=== PATIENT | male | born 1945 | race African-American/Black ===

== ENCOUNTER 2020-08-21 14:57 | Emergency (ER) | payer OTHER ==
[~2020-08-21] VITALS: Ht 167.6 cm; Wt 70.3 kg
[~2020-08-21 14:57] MED LIST: INVANZ1 GM IV
[2020-08-21 17:45] LABS: ABSOLUTE NEUTROPHILS 3.2 thou/uL (1.4-8.2); BASOPHILS 2.3 % (0.0-2.0); EOSINOPHILS 2.1 % (0.0-3.0); HEMATOCRIT 25.7 % (42.0-52.0); HEMOGLOBIN 8.6 gm/dL (14.0-18.0); LYMPHOCYTES 19.3 % (24.0-44.0); MCH 34.1 pg (26.0-34.0); MCHC 33.6 g/dL (28.0-37.0); MCV 101.6 fL (80.0-100.0); MONOCYTES 17.7 % (1.0-8.0); PLATELET COUNT 200 thou/uL (150-400); POLYS 58.6 % (36.0-66.0); RBC 2.53 mil/uL (4.50-6.00); RDW 20.4 % (10.5-14.5); WBC 5.5 thou/uL (4.0-11.0)
[2020-08-21 17:46] LABS: CALCIUM 7.7 mg/dL (8.5-10.1); POTASSIUM 3.5 mmol/L (3.5-5.1)
[2020-08-21 17:52] LABS: ALBUMIN 1.9 g/dL (3.4-5.0); TOTAL BILIRUBIN 0.5 mg/dL (0.2-1.0); TOTAL PROTEIN 5.9 g/dL (6.4-8.2)
[2020-08-21 17:54] LABS: INR 1.04; PROTIME 11.3 Seconds (10.5-12.1)
[2020-08-21] MEDS ORDERED: TYLENOL325 MG PO (18:08)
[2020-08-21] MEDS ORDERED: ADVAIR 100-501 EACH INH (18:09)
[2020-08-21] MEDS ORDERED: ASPIRIN EC81 M1 PO (18:10)
[2020-08-21] MEDS ORDERED: FOLIC ACID1 MG PO (18:12)
[2020-08-21] MEDS ORDERED: FUROSEMIDE 40 M40 MG PO (18:12)
[2020-08-21] MEDS ORDERED: NICOTINE PATCH1 EAC2 TRANSDERM (18:16)
[2020-08-21] MEDS ORDERED: PROTONIX40 M3 PO (18:17)
[2020-08-21 20:06] LABS: URINE BLOOD 3+ (Negative); URINE GLUCOSE-RANDOM* NEGATIVE (Negative); URINE KETONES TRACE (Negative); URINE LEUKOCYTES-REFLEX TRACE (Negative); URINE NITRITE-REFLEX POSITIVE (Negative); URINE PROTEIN (DIPSTICK) 3+ (Negative)
[2020-08-21 20:07] LABS: ICTOTEST (BILI CONFIRMATORY) Negative (Negative); URINE BILIRUBIN NEGATIVE (Negative); URINE CLARITY CLOUDY; URINE COLOR RED
[2020-08-21 20:09] LABS: CASTS None Seen /LPF (None Seen); SQUAMOUS None Seen /LPF (0-3); URINE RBC >20 Many /HPF (NONE SEEN); URINE WBC-REFLEX 0-5 Rare /HPF (0-5)
[2020-08-21 20:10] LABS: CRYSTALS None Seen /LPF (None Seen)
[2020-08-21] MEDS ORDERED: MACROBID 100 M100 M1 PO (20:22)
[2020-08-21 22:30] VITALS: BP 115/67
== END 2020-08-22 ==
LOC: ER 14:57
PROVIDERS: Emergency Medicine; Physician Assistant
DX: R31.9 Hematuria, unspecified (principal); N39.0 Urinary tract infection, site not specified; D64.9 Anemia, unspecified; K21.9 Gastro-esophageal reflux disease without esophagitis; E66.9 Obesity, unspecified; I10 Essential (primary) hypertension; Z88.0 Allergy status to penicillin; Z79.82 Long term (current) use of aspirin; Z79.899 Other long term (current) drug therapy